=== PATIENT | male | born 1945 | race Caucasian/White ===

== ENCOUNTER 2019-01-15 12:45 | Emergency (ER) | payer MEDICARE, BC ==
[~2019-01-15] VITALS: Ht 170.2 cm; Wt 95.5 kg
[~2019-01-15 12:45] MED LIST: ASPI-1265 PO; ATOR10TA87 PO; METO-539 PO; MOVE FREE; OMEG1CAP PO; TELM1TAB14 PO
[2019-01-15 12:56] VITALS: BP 138/66
[2019-01-15] MEDS ORDERED: TETanus/Pertussis (Acell)/Diphther VAC/PF (Tdap-Adult) 0.5ml syringe IM ONE (14:20)
== END 2019-01-15 15:16 | disposition home or self-care (01) ==
LOC: ER 12:46
DX: S01.01XA Laceration without foreign body of scalp, initial encounter (principal); E78.00 Pure hypercholesterolemia, unspecified; I10 Essential (primary) hypertension; Z88.6 Allergy status to analgesic agent; Z88.8 Allergy status to other drugs, medicaments and biological substances; Z79.82 Long term (current) use of aspirin; Z79.899 Other long term (current) drug therapy; Z86.73 Personal history of transient ischemic attack (TIA), and cerebral infarction without residual deficits; Z90.49 Acquired absence of other specified parts of digestive tract; Z98.890 Other specified postprocedural states; W18.09XA Striking against other object with subsequent fall, initial encounter; Y93.89 Activity, other specified; Y92.89 Other specified places as the place of occurrence of the external cause; Y99.8 Other external cause status
CPT/HCPCS: 12002; 70450; 90471; 99284

== ENCOUNTER 2019-01-19 09:58 | Emergency (ER) | payer MEDICARE, BC ==
[~2019-01-19] VITALS: Ht 170.2 cm; Wt 95.5 kg
[2019-01-19 10:01] VITALS: BP 125/88
--- NOTE | 2019-01-19 10:40 | NUR ---
HEAD STATLES (X3) WITHOUT REDNESS OR DRAINAGE
== END 2019-01-19 10:50 | disposition home or self-care (01) ==
LOC: ER 09:59
DX: S01.01XD Laceration without foreign body of scalp, subsequent encounter (principal); E78.00 Pure hypercholesterolemia, unspecified; I10 Essential (primary) hypertension; Z90.49 Acquired absence of other specified parts of digestive tract; Z98.890 Other specified postprocedural states; Z88.6 Allergy status to analgesic agent; Z88.8 Allergy status to other drugs, medicaments and biological substances; Z79.82 Long term (current) use of aspirin; Z79.899 Other long term (current) drug therapy; Z86.73 Personal history of transient ischemic attack (TIA), and cerebral infarction without residual deficits; X58.XXXD Exposure to other specified factors, subsequent encounter
CPT/HCPCS: 99284

== ENCOUNTER 2019-01-23 11:51 | Emergency (ER) | payer MEDICARE, BC ==
[~2019-01-23] VITALS: Ht 170.2 cm; Wt 95.0 kg
[2019-01-23 11:57] VITALS: BP 126/68
== END 2019-01-23 12:34 | disposition home or self-care (01) ==
LOC: ER 11:52
DX: S01.81XD Laceration without foreign body of other part of head, subsequent encounter (principal); E78.00 Pure hypercholesterolemia, unspecified; I10 Essential (primary) hypertension; Z88.6 Allergy status to analgesic agent; Z88.8 Allergy status to other drugs, medicaments and biological substances; Z79.82 Long term (current) use of aspirin; Z79.899 Other long term (current) drug therapy; Z86.73 Personal history of transient ischemic attack (TIA), and cerebral infarction without residual deficits; Z90.49 Acquired absence of other specified parts of digestive tract; Z98.890 Other specified postprocedural states; W18.39XD Other fall on same level, subsequent encounter
CPT/HCPCS: 99281